=== PATIENT | female | born 1985 | race Caucasian/White ===

== ENCOUNTER 2022-07-31 14:35 | Emergency (ER) | payer MEDICAID ==
[~2022-07-31] VITALS: Ht 165.1 cm; Wt 101.5 kg
[2022-07-31 14:54] VITALS: BP 127/83
== END 2022-07-31 15:31 | disposition home or self-care (01) ==
LOC: ER 14:37
DX: F11.988 Opioid use, unspecified with other opioid-induced disorder (principal); F17.210 Nicotine dependence, cigarettes, uncomplicated
CPT/HCPCS: 99282